=== PATIENT | female | born 1955 | race Caucasian/White ===

== ENCOUNTER 2021-07-05 22:22 | Inpatient (IN) | payer MEDICARE, SELFPAY ==
--- NOTE | 2021-07-05 22:25 | XRR_ITS ---
PROCEDURE INFORMATION: Exam: XR Chest Exam date and time: 07/05/2021 10:25 PM Age: 66 years old Clinical indication: Shortness of breath; Additional info: Covid TECHNIQUE: Imaging protocol: XR of the chest. Views: 1 view. COMPARISON: No relevant prior studies available. FINDINGS: Lungs: Hyperinflated lungs. No consolidation. Pleural spaces: Unremarkable. No pleural effusion. No pneumothorax. Heart/Mediastinum: Unremarkable. No cardiomegaly. Bones/joints: Unremarkable. XR/XR chest 1V portable [id number] IMPRESSION: No acute findings.
[2021-07-05 22:57] VITALS: BP 76/53; PULSE 62; RESP 16; TEMP 36.6; O2SAT 82
--- NOTE | 2021-07-05 23:07 | ECG_ITS ---
[facility] Test Date: 2021-07-05 Pat Name: Heather Acharya Department: Room: Gender: Female Operations General Agent: : 1955 Requested By: Dawson Armstrong Order Number: [id number] Reading MD: DELLA YU Measurements Intervals [place] Rate: 60 P: 35 RI: 206 QRS: 26 QRSD: 107 T: 34 QT: 426 QTc: 428 Interpretive Statements SINUS RHYTHM WITH SINUS ARRHYTHMIA No previous ECG available for comparison Electronically Signed On 07-06-2021 19:57:07 AGRICULTURAL SPECIALIST by DELLA YU [id number]
--- NOTE | 2021-07-05 23:34 | ED_ITS ---
HPI - COVID General: Chief Complaint: COVID symptoms Stated Complaint: covid symtoms Time Seen by Provider: 07/05/21 23:07 Source: patient and family Mode of arrival: ambulatory Limitations: no limitations Triage information: Has fever, cough or shortness of breath . Exposure to COVID + person last 14 days History of Present Illness: HPI Narrative: 66-year-old female states that she has not been feeling well over the last 6 to 7 days states been having diarrhea nausea vomiting body aches slight cough with dyspnea. She is down visiting her son and was having weakness along with some confusion today she been having near syncopal events when standing. Patient's pulse ox here on room air was 82 L and she was hypotensive after walking in her upon lying down in her bed her blood pressure is now 110/69 but still is requiring 3 to 4 L of oxygen to keep her at 93% on oxygen status. Patient's has had similar symptoms as well. COVID 19 common symptoms: positive fever(s), dyspnea, fatigue, body aches, nausea, vomiting and diarrhea; negative headache(s) or throat pain COVID 19 other sytmptoms: negative chest pain COVID Results: SARS-CoV-2 Antigen (Rapid) Negative (Negative) 07/06/21 00:00 07/06/21 SARS-CoV-2 (PCR) Pending 07/06/21 01:01 07/06/21 Coronavirus Type 229E (PCR) Pending 07/06/21 01:01 07/06/21 Review of Systems Const: Reports: fever(s), body aches, fatigue and malaise Eyes: Denies: blurry vision or eye discomfort ENMT: Denies: throat pain or dental pain Card: Denies: chest pain Resp: Reports: dyspnea GI: Reports: nausea, vomiting and diarrhea : Denies: dysuria Musc: Denies: neck pain or back pain Skin/Breast: Denies: rash Neuro: Denies: headache(s) Psych: Denies: depression Evan/Lymph: Denies: easy bruising All/Imm: Denies: urticaria Physical Exam Const: COMMON NORMALS: patient oriented x3 GENERAL APPEARANCE: ill appe aring HENMT: COMMON NORMALS: normocephalic and atraumatic HEAD & SCALP: normocephalic and atraumatic Eye: COMMON NORMALS: Equal, round and reactive pupils present and EOMs intact bilaterally PUPIL: Yes Equal, round and reactive pupils present Neck/C-Spine: COMMON NORMALS: full ROM and supple Chest: COMMONS NORMALS: normal inspection of the chest and normal palpation of entire chest wall Resp: COMMON NORMALS: normal respiratory effort, No retractions, No use of accessory muscles and clear to auscultation bilaterally AUSCULTATION: clear to auscultation bilaterally Cardio: COMMON NORMALS: regular rate, regular rhythm and No murmurs present (Cardio) RATE: regular rate RHYTHM: regular rhythm GI: COMMON NORMALS: Normal to inspection, nondistended, normoactive bowel sounds present, Soft to palpation, non-tender and no masses PALPATION: Yes Soft to palpation Extremity: COMMON NORMALS: normal to inspection and full ROM Neuro: COMMON NORMALS: patient oriented x3, moves all extremities and no focal motor deficits Psych: COMMON NORMALS: mental status grossly normal, Normal thought process present and cooperative THOUGHT PROCESS: Normal thought process present Skin: COMMON NORMALS: no rashes or lesions noted and no wounds GENERAL SKIN EXAM: no rashes or lesions noted Course Vital Signs: Vital signs: Vital Signs Temperature 97.9 F 07/05/21 22:57 Pulse Rate 61 07/06/21 00:57 Respiratory Rate 18 07/06/21 00:57 Blood Pressure 128/73 07/06/21 00:57 Pulse Oximetry 92 07/06/21 00:57 MDM - COVID MDM Narrative: Medical decision making narrative: Patient presents here with diarrhea and decreased appetite she does have acute kidney injury likely from her diarrhea creatinines elevated from baseline patient was hypotensive when she arrived she feels much improved here after IV fluids blood pressure is improving as well. Her rapid COVID was negative but her does have COVID we will check a PCR. I spoke to hospitalist will admit at this time for IV fluids and further treatment. Lab Data: Labs: Lab Results 07/05/21 07/05/21 07/05/21 23:32 23:32 23:32 WBC 7.7 10^3/uL 10^3/ uL (4.0-10.0) RBC 5.13 10^6/uL 10^6 /uL (4.1-5.3) Hgb 14.6 g/dL g/dL (11.5-15.3) Hct 42.4 % % (37.0-47.0) MCV 82.7 fl fl (81-99) MCH 28.5 pg pg (28.0-34.0) MCHC 34.4 g/dL g/dL (30.0-36.0) RDW 13.1 % % (12.1-15.1) Plt Count 150 10^3/cmm 10^3 /cmm (130-400) MPV 11.8 fL H fL (7.4-10.4) Neut % (Auto) 75.8 % % Lymph % (Auto) 16.8 % % Howell % (Auto) 6.8 % % Eos % (Auto) 0.0 % % Baso % (Auto) 0.1 % % Neut # (Auto) 5.83 10^3/uL 10^3 /uL (1.8-7.7) Lymph # (Auto) 1.3 10^3/uL 10^3/ uL (0.8-4.8) Howell # (Auto) 0.5 10^3/uL 10^3/ uL (0.2-0.9) Eos # (Auto) 0.0 10^3/uL 10^3/ uL (0.0-0.8) Baso # (Auto) 0.0 10^3/uL 10^3/ uL (0.0-0.1) Nucleated RBC % (a uto) 0 % % Nucleated RBCs # 0.0 /100WBC /100W BC PT 12.80 SECONDS SEC ONDS (12.1-14.9) INR 0.94 (0.8-1.2) D-Dimer 1.20 ug/mIFEU H u g/mIFEU (0-0.59) Sodium 133 mmol/L L mmol /L (136-145) Potassium 3.3 mmol/L L mmol /L (3.5-5.1) Chloride 92 mmol/L L mmol/ L (98-107) Carbon Dioxide 22 mmol/L mmol/L (22-29) Anion Gap 22.3 H (5-19) BUN 68 mg/dL H mg/dL (8-23) Creatinine 2.5 mg/dL H mg/dL (0.5-0.9) GFR Calculation 19.3 mL/min L mL/ min (90-130) Glucose 124 mg/dL H mg/dL (65-115) Calculated Osmolal ity 297 mOsm/kg H mOs m/kg (285-295) Lactic Acid Calcium 9.0 mg/dL mg/dL (8.5-10.5) Total Bilirubin 0.6 mg/dL mg/dL (0.15-1.2) AST 61 U/L H U/L (0-32) ALT 57 U/L H U/L (0-33) Alkaline Phosphata se 53 IU/L IU/L (35-105) C-Reactive Protein 45.8 mg/L H mg/L (0.0-4.9) Total Protein 7.1 g/dL g/dL (6.6-8.7) Albumin 3.6 g/dL g/dL (3.5-5.2) Globulin 3.5 g/dL g/dL (1.3-4.6) SARS-CoV-2 Ag (Rap id) 07/05/21 07/06/21 23:32 00:00 WBC RBC Hgb Hct MCV MCH MCHC RDW Plt Count MPV Neut % (Auto) Lymph % (Auto) Howell % (Auto) Eos % (Auto) Baso % (Auto) Neut # (Auto) Lymph # (Auto) Howell # (Auto) Eos # (Auto) Baso # (Auto) Nucleated RBC % (a uto) Nucleated RBCs # PT INR D-Dimer Sodium Potassium Chloride Carbon Dioxide Anion Gap BUN Creatinine GFR Calculation Glucose Calculated Osmolal ity Lactic Acid 1.2 mmol/L mmol/L (0.5-2.2) Calcium Total Bilirubin AST ALT Alkaline Phosphata se C-Reactive Protein Total Protein Albumin Globulin SARS-CoV-2 Ag (Rap id) Negative (Negative) Imaging Data: CXR: Attestation: I personally reviewed and interpreted this imaging study as follows: My impression: no acute abnormality EKG Data: EKG 1: Attestation: I personally reviewed and interpreted this EKG as follows: EKG interpretation date: 07/05/21 EKG interpretation time: 23:29 Interpretation: nsr hr [address] or t wave abnormalities qrs 107 qtc 427 COVID Results: SARS-CoV-2 Antigen (Rapid) Negative (Negative) 07/06/21 00:00 07/06/21 SARS-CoV-2 (PCR) Pending 07/06/21 01:01 07/06/21 Coronavirus Type 229E (PCR) Pending 07/06/21 01:01 07/06/21 Discharge Plan Discharge Patient Disposition: Admitted As Inpatient Clinical Impression: Close exposure to severe acute respiratory syndrome coronavirus 2 (SARS-CoV-2), Acute dehydration, Acute kidney injury, Diarrhea Condition: Stable Coding Level of Care Code 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
[2021-07-05 23:47] VITALS: O2SAT 93
[2021-07-05 23:50] LABS: Basophils % 0.1 %; Hematocrit 42.4 % (37.0-47.0); Hemoglobin 14.6 g/dL (11.5-15.3); Lymphocytes # 1.3 10^3/uL (0.8-4.8); Lymphocytes % 16.8 %; Mean Corpuscular HGB Conc 34.4 g/dL (30.0-36.0); Mean Corpuscular Hemoglobin 28.5 pg (28.0-34.0); Mean Corpuscular Volume 82.7 fl (81-99); Mean Platelet Volume 11.8 fL (7.4-10.4); Monocytes # 0.5 10^3/uL (0.2-0.9); Monocytes % 6.8 %; Neutrophils # 5.83 10^3/uL (1.8-7.7); Neutrophils % 75.8 %; Nucleated Red Blood Cells % 0 %; Platelet Count 150 10^3/cmm (130-400); Red Blood Count 5.13 10^6/uL (4.1-5.3); Red Cell Distribution Width 13.1 % (12.1-15.1); White Blood Count 7.7 10^3/uL (4.0-10.0)
[2021-07-06] VITALS (15 sets, daily range): BP systolic 93–149; BP diastolic 62–77; PULSE 61–84; RESP 16–29; TEMP 36.6; O2SAT 89–94; BMI 32.4
[2021-07-06 00:06] LABS: Alanine Aminotransferase 57 U/L (0-33); Albumin Level 3.6 g/dL (3.5-5.2); Alkaline Phosphatase 53 IU/L (35-105); Anion Gap 22.3 (5-19); Aspartate Amino Transferase 61 U/L (0-32); Blood Urea Nitrogen 68 mg/dL (8-23); C Reactive Protein 45.8 mg/L (0.0-4.9); Carbon Dioxide 22 mmol/L (22-29); Chloride 92 mmol/L (98-107); Globulin 3.5 g/dL (1.3-4.6); Glomerular Filtration Rate 19.3 mL/min (90-130); Glucose 124 mg/dL (65-115); Osmolality Calculated 297 mOsm/kg (285-295); Potassium 3.3 mmol/L (3.5-5.1); Sodium 133 mmol/L (136-145); Total Bilirubin 0.6 mg/dL (0.15-1.2); Total Protein 7.1 g/dL (6.6-8.7)
[2021-07-06 00:07] LABS: Lactic Sepsis W/Reflex 1.2 mmol/L (0.5-2.2)
[2021-07-06 00:09] LABS: INR 0.94 (0.8-1.2)
[2021-07-06] MEDS: sodium chloride 0.9% 1,000 ML 999 ML IV (00:11)
[2021-07-06 00:26] LABS: Slide Review Slide Review Perform
[2021-07-06 00:37] LABS: SARS Covid-2 Antigen Negative (Negative)
[2021-07-06 02:47] LABS: Adenovirus Not Detected (NOT DETECT); Chlamydia Pneumoniae Not Detected (NOT DETECT); Coronavirus 229E,HKU1,NL63,OC4 Not Detected (NOT DETECT); Human Metapneumovirus Not Detected (NOT DETECT); Human Rhinovirus/Enterovirus Not Detected (NOT DETECT); Influenza A Not Detected (NOT DETECT); Influenza A H1 Not Detected (NOT DETECT); Influenza A H1-2009 Not Detected (NOT DETECT); Influenza A H3 Not Detected (NOT DETECT); Influenza B Not Detected (NOT DETECT); Mycoplasma Pneumoniae Not Detected (NOT DETECT); Parainfluenza Virus Type 1 Not Detected (NOT DETECT); Parainfluenza Virus Type 2 Not Detected (NOT DETECT); Parainfluenza Virus Type 3 Not Detected (NOT DETECT); Parainfluenza Virus Type 4 Not Detected (NOT DETECT); Respiratory Syncytial Virus A Not Detected (NOT DETECT); Respiratory Syncytial Virus B Not Detected (NOT DETECT); SARS-COV-2 Detected (NOT DETECT)
--- NOTE | 2021-07-06 03:33 | P.HP_ITS ---
Providers/Chief Complaint Admitting Physician: Yumiko Rousseau Chief Complaint: covid symtoms History of Present Illness 66-year-old female with a past medical history significant for hypertension, dyslipidemia, gastroesophageal reflux disease, who presented to the hospital with generalized weakness. Patient noted onset of symptoms 1 week prior. This was associated with poor po intake, nausea, abdominal discomfort and ongoing loose watery diarrhea. Did have exposure to COVID-19. Denies chest pain or shortness of breath. Laboratory work upon arrival showed a WBC of 7.7, hemoglobin of 14.6, hematocrit of 42.4 and a platelet count of 150. INR 0.94. D-dimer 1.20. Sodium 133, potassium 3.3, chloride 92, bicarb 22, BUN 68 and creatinine of 2.5. Glucose of 124. Lactic acid of 1.2. AST of 61, ALT 57 and alkaline phosphatase 53. CRP of 45.8.COVID 19 ag was negative however PCR was positive. Chest x-ray did not show any evidence of acute abnormality. ER Course: Upon arrival patient was noted to have oxygen saturation in low to mid 80s. This improved with up to 4L of o2 via NC. Was given 1L bolus of IVF. Review of Systems General: Reports: 10 or more systems reviewed and unremarkable except in HPI and below Medications/Allergies Home Medications Medication Instructions Recorded Confirmed Last Taken Type clarithromycin 500 mg PO BID 07/06/21 07/06/21 07/05/21 20:00 History diltiazem HCl 240 mg PO DAILY 07/06/21 07/06/21 07/05/21 08:00 History escitalopram oxalate 10 mg PO DAILY 07/06/21 07/06/21 07/05/21 08:00 History fenofibrate nanocrystallized 145 mg PO DAILY 07/06/21 07/06/21 07/05/21 08:00 History hydrochlorothiazide 50 mg PO DAILY 07/06/21 07/06/21 07/05/21 08:00 History lisinopril 40 mg PO DAILY 07/06/21 07/06/21 07/05/21 08:00 History metoprolol succinate 100 mg PO DAILY 07/06/21 07/06/21 07/05/21 08:00 History montelukast 10 mg PO DAILY 07/06/21 07/06/21 07/05/21 08:00 History omeprazole 20 mg PO DAILY 07/06/21 07/06/21 07/05/21 08:00 History simvastatin 10 mg PO DAILY 07/06/21 07/06/21 07/05/21 08:00 History Allergies Allergy/AdvReac Type Severity Reaction Status Date / Time No Known Allergies Allergy Verified 07/05/21 23:01 PFSH Acute PFSH: Medical History (Updated 07/06/21 @ 05:37 by Yumiko Rousseau MD) Dyslipidemia Hypertension No pertinent family history Surgical History (Updated 07/06/21 @ 05:35 by Yumiko Rousseau MD) No pertinent past surgical history Social History (Updated 07/06/21 @ 05:35 by Yumiko Rousseau MD) Smoking and tobacco status: never smoked Alcohol intake: never Substance/Drug Use: never Vitals/I&O/Wt Last Vital Signs Temp 97.8 F 07/06/21 03:36 Pulse 65 07/06/21 04:22 Resp 19 H 07/06/21 03:36 BP 113/68 07/06/21 03:36 Pulse Ox 91 07/06/21 04:36 07/05/21 07/05/21 07/06/21 14:59 22:59 06:59 Intake Total 1120 / 1120 Balance 1120 / 1120 Weight last 48 hrs Weight 88.36 kg Weight 87.997 kg Physical Exam Narrative: EXAM NARRATIVE: General: alert, awake, NAD HEENT ; Grossly Unremarkable CVS; NSR Chest ; Non-labored respiration, on 4L via NC Abd : Soft NT,ND Ext; No edema Data : 07/05/21 23:32 07/05/21 23:32 Micro: Microbiology 07/05/21 23:25 Blood Culture - Preliminary Blood SPECIMEN COLLECTED 07/05/21 23:32 Blood Culture - Preliminary Blood SPECIMEN COLLECTED A&P Assessment and plan (1) Acute kidney injury: Status: Acute (2) COVID-19 virus infection: Status: Acute (3) Hypertension: Status: Acute (4) Dyslipidemia: Status: Acute (5) Hypoxia: Status: Acute Additional A&P Information Acute Renal Failure Likely Pre-renal Hypotensive on arrival ( 76/53) Cr - 2.5 NS 1L bolus n ER Continue at 75cc/hr Hold HCTZ/ACEinhibitor Repeat BMP in am Monitor urine output Acute Hypoxia Chest x-ray negative Repeat xray post hydration Concern for PE given COVID-19 D-dimer 1.20 Underlying sleep apnea Supplemental 02 as needed Wean as tolerated Neb as ordered If renal function return to baseline obtain CTA chest vs VQ scan COVID-19 infection Likely viral gastroenteritis Zofran PRN IVF - cautious Droplet precautions Will initiate Decadron 6mg daily x 10 days Monitor off abx Additional Medical Problems Hypertension Dyslipidemia GERD DVT ppx SCDS Heparin 5000 units q8hr Attestations Medical Necessity Statement*: Anticipate over 2 midnights stay in hospital for evaluation and treatment Time Spent in Patient Care: Greater than 35 minutes (>than 50% of time spent in counselling and/or direct pt care on unit) . 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
[2021-07-06] MEDS: heparin 5,000 unit/mL INJ 1 mL 5000 UNIT SUBCUT ×3 (03:52→19:34)
[2021-07-06] MEDS: sodium chloride 0.9% 1,000 ML 75 ML IV ×2 (03:52→16:37)
--- NOTE | 2021-07-06 05:26 | XRR_ITS ---
PROCEDURE INFORMATION: Exam: XR Chest Exam date and time: 07/06/2021 5:26 AM Age: 66 years old Clinical indication: Shortness of breath; Patient HX: Persistent hypoxia. Covid + TECHNIQUE: Imaging protocol: XR of the chest. Views: 1 view. Total images: 1 COMPARISON: CR (CHEST, ) 07/05/2021 10:44 PM FINDINGS: Lungs: Bilateral patchy airspace densities, favoring pneumonia, possibly atypical pneumonia. Calcified node in the left hilum/AP window. Pleural spaces: Unremarkable. No pleural effusion. No pneumothorax. Heart/Mediastinum: Heart size is stable when compared to the prior exam. Bones/joints: Osseous structures are unchanged from the prior exam. XR/XR chest 1V portable [id number] IMPRESSION: Bilateral patchy airspace densities, favoring pneumonia, possibly atypical pneumonia.
--- NOTE | 2021-07-06 05:58 | PC.NURSE ---
Admit Note Patient admitted to CSU room 106 from ED via stretcher. Patient able to ambulate to bed without difficulty. Denies increased SOB with exertion. Currently on 4L NC with SpO2 91%. Covering service notified. Patient presents with COVID symptoms with positive PCR, dehydration and brittany. Orders reviewed & will continue to monitor. Patient and/or leather goods sales representative oriented to environment, equipment, and informed of the following as found in the admission booklet: patient rights & responsibilities, visitor policy, hand and respiratory hygiene practice. Other education includes: heparin and IV fluids for hydration. Patient verbalized complete understanding.
[2021-07-06 06:17] LABS: Basophils % 0.2 %; Hematocrit 39.4 % (37.0-47.0); Hemoglobin 13.5 g/dL (11.5-15.3); Lymphocytes # 1.2 10^3/uL (0.8-4.8); Lymphocytes % 19.2 %; Mean Corpuscular HGB Conc 34.3 g/dL (30.0-36.0); Mean Corpuscular Hemoglobin 28.8 pg (28.0-34.0); Mean Corpuscular Volume 84.2 fl (81-99); Mean Platelet Volume 11.5 fL (7.4-10.4); Monocytes # 0.4 10^3/uL (0.2-0.9); Nucleated Red Blood Cells % 0 %; Platelet Count 150 10^3/cmm (130-400); Red Blood Count 4.68 10^6/uL (4.1-5.3); Red Cell Distribution Width 13.3 % (12.1-15.1); White Blood Count 6.2 10^3/uL (4.0-10.0)
[2021-07-06 06:39] LABS: Alanine Aminotransferase 48 U/L (0-33); Albumin Level 3.3 g/dL (3.5-5.2); Alkaline Phosphatase 48 IU/L (35-105); Aspartate Amino Transferase 52 U/L (0-32); Blood Urea Nitrogen 59 mg/dL (8-23); Calcium 8.6 mg/dL (8.5-10.5); Carbon Dioxide 22 mmol/L (22-29); Chloride 96 mmol/L (98-107); Globulin 3.2 g/dL (1.3-4.6); Glomerular Filtration Rate 28.2 mL/min (90-130); Glucose 116 mg/dL (65-115); Magnesium 1.9 mg/dL (1.7-2.3); Osmolality Calculated 298 mOsm/kg (285-295); Sodium 135 mmol/L (136-145); Total Bilirubin 0.5 mg/dL (0.15-1.2); Total Protein 6.5 g/dL (6.6-8.7)
[2021-07-06] MEDS: dexamethasone 10 mg/mL INJ 6 MG IVP (06:43)
[2021-07-06 06:44] LABS: Procalcitonin 0.17 ng/mL (0-0.5)
[2021-07-06 07:22] LABS: Slide Review Slide Review Perform
[2021-07-06] MEDS: pantoprazole DR 40 mg Tablet PO (08:12)
--- NOTE | 2021-07-06 14:50 | PM.PN ---
Subjective Subjective: Interval history: Patient feels slightly better. She denies dyspnea. She has fatigue, myalgias and decreased appetite. She has not had much PO intake over past several days. Vitals/I&O/Wt Last Vital Signs Temp 97.8 F 07/06/21 03:36 Pulse 65 07/06/21 08:00 Resp 16 07/06/21 10:06 BP 106/64 07/06/21 08:00 Pulse Ox 92 07/06/21 10:06 07/05/21 07/06/21 07/06/21 22:59 06:59 14:59 Intake Total 1120 / 1120 360 / 360 Balance 1120 / 1120 360 / 360 Weight last 48 hrs Weight 88.36 kg Weight 87.997 kg Physical Exam Narrative: EXAM NARRATIVE: elderly ill appearing, oriented Const: COMMON NORMALS: patient oriented x3 HENMT: COMMON NORMALS: normocephalic and atraumatic HEAD & SCALP: normocephalic and atraumatic Eye: COMMON NORMALS: Equal, round and reactive pupils present PUPIL: Yes Equal, round and reactive pupils present Neck/C-Spine: COMMON NORMALS: full ROM, supple and no JVD Chest: COMMONS NORMALS: normal inspection of the chest Resp: COMMON NORMALS: No use of accessory muscles and clear to auscultation bilaterally AUSCULTATION: clear to auscultation bilaterally Cardio: COMMON NORMALS: no JVD, regular rate, regular rhythm and No murmurs present (Cardio) RATE: regular rate RHYTHM: regular rhythm GI: COMMON NORMALS: Soft to palpation, non-tender and no masses PALPATION: Yes Soft to palpation : COMMON NORMALS: Yes no CVA tenderness BLADDER/KIDNEY EXAM: Yes no CVA tenderness Back/Pelvis: COMMON NORMALS: no CVA tenderness Extremity: COMMON NORMALS: full ROM, no clubbing, cyanosis or edema, no calf tenderness and no pedal edema Neuro: COMMON NORMALS: patient oriented x3, moves all extremities, no focal motor deficits and no sensory deficits noted Psych: COMMON NORMALS: mental status grossly normal ATTITUDE: Yes calm ACTIVITY/MOTOR BEHAVIOR: Yes appropriate eye contact Skin: COMMON NORMALS: no rashes or lesions noted, no wounds and turgor normal GENERAL SKIN EXAM: no rashes or lesions noted and turgor normal Data : 07/06/21 05:49 07/06/21 05:49 Micro: Microbiology 07/05/21 23:25 Blood Culture - Preliminary Blood SPECIMEN COLLECTED 07/05/21 23:32 Blood Culture - Preliminary Blood SPECIMEN COLLECTED A&P Assessment and plan (1) Acute hypoxemic respiratory failure due to COVID-19: Patient had PCR positive for COVID on arrival. Patient unvaccinated for COVID CXR reveals bilateral diffuse opacities consistent with COVID She is on supplemental oxygen at 4 L by NC Has had GI symptoms with COVID and noted to be acutely dehydrated and in CARA with hypotension. Although d dimer elevated 1.20, unable to obtain CTA chest to r/o PE due to renal failure Decadron 6 mg IV x 10 days, stop date 07/15/21 Unable to give remdesivir due to acute kidney injury Rocephin added for possible superimposed bacterial infection although unlikely Monitor closely At risk for further deterioration Status: Acute (2) Acute kidney injury: Serum creatinine 2.5 on arrival- improved to 1.8 with IVF Likely secondary to dehydration/poor PO intake- patient hypotensive on arrival- improved with fluids Continue to hold HCTZ/CAMERON Monitor I/O and renal function closely Status: Acute (3) Hypokalemia: Replace and monitor Status: Acute Attestations Medical Necessity Statement*: Patient requires continued hospitalization for acute medical problems including hypoxia and COVID infection, CARA, dehydration Coding Level of Care Code Acute 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
[2021-07-06] MEDS: cefTRIAXone 2,000 MG in sodium chloride 0.9% (plus) 50 ML 100 MG IV (15:25)
--- NOTE | 2021-07-06 18:04 | PC.NURSE ---
Shift Note Frequent safety and comfort rounds continue. Orders and/or nursing care completed as indicated. Patient monitored for response to intervention and treatment(s). Education provided includes instruction on cefipime. Patient and/or reimbursement representative verb understanding. Will continue to monitor.
--- NOTE | 2021-07-06 19:51 | PC.NURSE ---
Received report from FELICE Kramer. Patient resting in bed watching tv. Denies pain or needs. Assisted patient up to BSC. Noted patient to have increased SOB with exertion. SpO2 79%. SpO2 recovered when back in bed to 84%. Instructed patient on deep breathing exercises. Patient verbalized complete understanding.
[2021-07-07] VITALS (13 sets, daily range): BP systolic 124–162; BP diastolic 68–95; PULSE 64–90; RESP 15–28; TEMP 36.8; O2SAT 86–100
[2021-07-07] MEDS: ipratropium-albuterol 3 mL Neb INHALATION (03:09)
[2021-07-07 04:01] LABS: Hematocrit 40.4 % (37.0-47.0); Hemoglobin 13.6 g/dL (11.5-15.3); Lymphocytes # 0.8 10^3/uL (0.8-4.8); Lymphocytes % 24.4 %; Mean Corpuscular HGB Conc 33.7 g/dL (30.0-36.0); Mean Corpuscular Hemoglobin 28.2 pg (28.0-34.0); Mean Corpuscular Volume 83.6 fl (81-99); Mean Platelet Volume 11.6 fL (7.4-10.4); Monocytes # 0.3 10^3/uL (0.2-0.9); Monocytes % 8.2 %; Neutrophils # 2.16 10^3/uL (1.8-7.7); Neutrophils % 65.9 %; Nucleated Red Blood Cells % 0 %; Platelet Count 158 10^3/cmm (130-400); Red Blood Count 4.83 10^6/uL (4.1-5.3); Red Cell Distribution Width 12.8 % (12.1-15.1); White Blood Count 3.3 10^3/uL (4.0-10.0)
[2021-07-07 04:29] LABS: Procalcitonin 0.09 ng/mL (0-0.5)
[2021-07-07 04:42] LABS: Alanine Aminotransferase 44 U/L (0-33); Albumin Level 3.3 g/dL (3.5-5.2); Alkaline Phosphatase 52 IU/L (35-105); Aspartate Amino Transferase 35 U/L (0-32); Blood Urea Nitrogen 33 mg/dL (8-23); Calcium 8.9 mg/dL (8.5-10.5); Carbon Dioxide 21 mmol/L (22-29); Chloride 96 mmol/L (98-107); Globulin 3.6 g/dL (1.3-4.6); Glomerular Filtration Rate 55.5 mL/min (90-130); Glucose 166 mg/dL (65-115); Magnesium 1.8 mg/dL (1.7-2.3); Osmolality Calculated 289 mOsm/kg (285-295); Sodium 134 mmol/L (136-145); Total Bilirubin 0.4 mg/dL (0.15-1.2); Total Protein 6.9 g/dL (6.6-8.7)
[2021-07-07 04:46] LABS: Slide Review Slide Review Perform
[2021-07-07] MEDS: dexamethasone 10 mg/mL INJ 6 MG IVP (05:06)
[2021-07-07] MEDS: heparin 5,000 unit/mL INJ 1 mL 5000 UNIT SUBCUT ×3 (05:06→20:55)
[2021-07-07] MEDS: sodium chloride 0.9% 1,000 ML 75 ML IV (05:07)
--- NOTE | 2021-07-07 06:44 | PC.NURSE ---
Shift Note Frequent safety and comfort rounds continue. Orders and/or nursing care completed as indicated. Patient monitored for response to intervention and treatment(s). Education provided includes heparin and dexamethasone. Patient verbalized understanding. Patient's O2 requirement increased to 5L overnight with SpO2 sustaining 87%. Patient denies pain or needs. No distress observed. Will continue to monitor.
--- NOTE | 2021-07-07 07:45 | PM.PN ---
Subjective Subjective: Interval history: Patient reports appetite improved. She denies nausea, or abdominal pain. Has fatigue. Denies dyspnea- however, desaturates with movement. Currently requiring 5 L supplemental oxygen Medications: Reviewed: Yes Vitals/I&O/Wt Last Vital Signs Temp 97.9 F 07/06/21 16:00 Pulse 90 07/07/21 04:14 Resp 18 07/07/21 03:29 BP 136/68 07/07/21 03:29 Pulse Ox 86 L 07/07/21 03:29 07/06/21 07/07/21 07/07/21 22:59 06:59 14:59 Intake Total 1246.25 / 1846.25 1397.5 / 3243.75 Output Total 600 / 1300 Balance 646.25 / 546.25 1397.5 / 1943.75 Weight last 48 hrs Weight 88.36 kg Weight 87.997 kg Physical Exam Narrative: EXAM NARRATIVE: elderly patient, alert, oriented, not in acute distress Const: COMMON NORMALS: patient oriented x3 HENMT: COMMON NORMALS: normocephalic and atraumatic HEAD & SCALP: normocephalic and atraumatic Neck/C-Spine: COMMON NORMALS: full ROM and supple Resp: COMMON NORMALS: normal respiratory effort, No use of accessory muscles and clear to auscultation bilaterally AUSCULTATION: clear to auscultation bilaterally Cardio: COMMON NORMALS: regular rate, regular rhythm and No murmurs present (Cardio) RATE: regular rate RHYTHM: regular rhythm GI: COMMON NORMALS: Soft to palpation and non-tender PALPATION: Yes Soft to palpation Extremity: COMMON NORMALS: full ROM, no calf tenderness and no pedal edema Neuro: COMMON NORMALS: patient oriented x3, no focal motor deficits and no sensory deficits noted Psych: COMMON NORMALS: cooperative and speech normal ATTITUDE: Yes calm ACTIVITY/MOTOR BEHAVIOR: Yes appropriate eye contact SPEECH: Yes normal speech Skin: COMMON NORMALS: no rashes or lesions noted and no wounds GENERAL SKIN EXAM: no rashes or lesions noted Data : 07/07/21 03:31 07/07/21 03:31 Micro: Microbiology 07/05/21 23:25 Blood Culture - Preliminary Blood NEGATIVE TO DATE 07/05/21 23:32 Blood Culture - Preliminary Blood NEGATIVE TO DATE A&P Assessment and plan (1) Acute hypoxemic respiratory failure due to COVID-19: Patient had PCR positive for COVID on arrival. Patient unvaccinated for COVID CXR reveals bilateral diffuse opacities consistent with COVID She is now requiring 5 L supplemental oxygen by nasal canula. Continue supplemental oxygen and titrate as able to Has had GI symptoms with COVID and noted to be acutely dehydrated and in CARA with hypotension. Although d dimer elevated 1.20, CTA was unable to be obtained at admission due to CARA As renal function has now improved to baseline- will order CTA Decadron 6 mg IV x 10 days, stop date 07/15/21 Unable to give remdesivir due to acute kidney injury at time of admission- as renal function now normal- will begin remdesivir x 5 days- stop date 07/11/21- patient now declines remdesivir Rocephin added for possible superimposed bacterial infection- will D/C Monitor closely At risk for further deterioration Status: Acute (2) Acute kidney injury: Serum creatinine 2.5 on arrival- improved to 1.8 with IVF and currently is in normal range- will D/C IVF Monitor I/O and renal function closely Status: Acute (3) Hypokalemia: Replace and monitor Status: Acute Attestations Medical Necessity Statement*: Patient requires ongoing care and hospitalization for acute respiratory failure with hypoxia due to COVID Coding Level of Care Code Acute 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
[2021-07-07] MEDS: remdesivir 200 MG in sodium chloride 0.9% (100 ml) 60 ML 100 MG IV (08:14)
[2021-07-07] MEDS: potassium chloride ER 20 mEq Tablet 40 MEQ PO (08:15)
[2021-07-07] MEDS: pantoprazole DR 40 mg Tablet PO (08:15)
[2021-07-07] MEDS: potassium chloride premix 100 ML 50 MEQ IV (09:03)
--- NOTE | 2021-07-07 10:37 | CTR_ITS ---
PROCEDURE INFORMATION: Exam: CTA Chest With Contrast Exam date and time: 07/07/2021 10:37 AM Age: 66 years old Clinical indication: Dyspnea and hypoxia. TECHNIQUE: Imaging protocol: Computed tomographic angiography of the chest with contrast. 3D rendering (Not supervised by radiologist): MIP and/or 3D reconstructed images were created by the technologist. Radiation optimization: All CT scans at this facility use at least one of these dose optimization techniques: automated exposure control; mA and/or kV adjustment per patient size (includes targeted exams where dose is matched to clinical indication); or iterative reconstruction. Contrast material: VISI 320; Contrast volume: 52 ml; Contrast route: INTRAVENOUS (IV); COMPARISON: CR (CHEST, ) 07/06/2021 5:49 AM RADIATION DOSE METRICS: Total DLP (mGy-cm): 621.43 FINDINGS: Pulmonary arteries: Motion artifact compromises assessment for pulmonary embolus. No main, central or lobar pulmonary embolus. Aorta: No thoracic aortic aneurysm. No thoracic aortic dissection. Lungs: There are extensive ground-glass opacities bilaterally with a peripheral predominance.These imaging findings are commonly reported imaging features of COVID 19 pneumonia. Other processes such as Influenza pneumonia and organizing pneumonia (as can be seen with connective tissue disease and drug toxicity) can cause a similar imaging pattern. Calcified granuloma in the left lower lobe. No pulmonary mass. Pleural spaces: No pleural effusion. No pneumothorax. Heart: Coronary arterial calcifications are noted. No pericardial effusion. Lymph nodes: A right hilar lymph node measures 1.3 x 1.5 cm. A left hilar lymph node measures 1.0 x 1.2 cm. A subcarinal lymph node measures 1.1 x 2.2 cm. Diaphragm: Small hiatal hernia. Spleen: The spleen is enlarged measuring 13.5 cm. There is diffuse hepatic steatosis. Cholelithiasis with largely contracted gallbladder. The common bile duct appears dilated measuring up to 1.1 cm. A periportal lymph node measures 1.9 x 2.4 cm. Bones/joints: No acute fracture is identified. Soft tissues: There are nodules in the right breast measuring 1.0 x 1.6 cm, 0.7 x 0.9 cm and 0.[address]/CT angio chest PE protcl [id number] IMPRESSION: 1. Motion artifact compromises assessment for pulmonary embolus. No main, central or lobar pulmonary embolus. 2. There are extensive ground-glass opacities bilaterally with a peripheral predominance.These imaging findings are commonly reported imaging features of COVID 19 pneumonia. Other processes such as Influenza pneumonia and organizing pneumonia (as can be seen with connective tissue disease and drug toxicity) can cause a similar imaging pattern. 3. Mediastinal and bilateral hilar lymphadenopathy. 4. Cholelithiasis with largely contracted gallbladder. The common bile duct appears dilated measuring up to 1.1 cm. Recommend right upper quadrant ultrasound to further assess. 5. Multiple nodules in the right breast. Recommend diagnostic right breast mammogram with concurrent ultrasound to further assess. 6. Diffuse hepatic steatosis with periportal lymphadenopathy. 7. Coronary artery disease. 8. Splenomegaly.
[2021-07-07] MEDS: iodixanol 320 mg/mL 100mL Btl IV (14:04)
[2021-07-08] VITALS (38 sets, daily range): BP systolic 147–174; BP diastolic 80–99; PULSE 55–89; RESP 12–34; TEMP 36.4–36.9; O2SAT 87–98
[2021-07-08 03:40] LABS: Hematocrit 39.9 % (37.0-47.0); Hemoglobin 13.7 g/dL (11.5-15.3); Lymphocytes # 0.7 10^3/uL (0.8-4.8); Lymphocytes % 10.5 %; Mean Corpuscular HGB Conc 34.3 g/dL (30.0-36.0); Mean Corpuscular Hemoglobin 28.8 pg (28.0-34.0); Mean Platelet Volume 11.5 fL (7.4-10.4); Monocytes # 0.6 10^3/uL (0.2-0.9); Monocytes % 8.8 %; Neutrophils # 4.85 10^3/uL (1.8-7.7); Neutrophils % 77.2 %; Nucleated Red Blood Cells % 0 %; Platelet Count 197 10^3/cmm (130-400); Red Blood Count 4.75 10^6/uL (4.1-5.3); Red Cell Distribution Width 12.8 % (12.1-15.1); White Blood Count 6.3 10^3/uL (4.0-10.0)
[2021-07-08 03:59] LABS: Anion Gap 16.1 (5-19); Blood Urea Nitrogen 28 mg/dL (8-23); Calcium 9.3 mg/dL (8.5-10.5); Carbon Dioxide 24 mmol/L (22-29); Chloride 103 mmol/L (98-107); Glomerular Filtration Rate 62.6 mL/min (90-130); Glucose 143 mg/dL (65-115); Osmolality Calculated 296 mOsm/kg (285-295); Potassium 4.1 mmol/L (3.5-5.1); Sodium 139 mmol/L (136-145)
[2021-07-08 04:12] LABS: Slide Review Slide Review Perform
[2021-07-08] MEDS: heparin 5,000 unit/mL INJ 1 mL 5000 UNIT SUBCUT ×3 (05:28→20:13)
[2021-07-08] MEDS: dexamethasone 10 mg/mL INJ 6 MG IVP (05:34)
[2021-07-08] MEDS: pantoprazole DR 40 mg Tablet PO (08:32)
--- NOTE | 2021-07-08 10:14 | US_ITS ---
WS: [id number] RIGHT UPPER QUADRANT ULTRASOUND HISTORY: hepatobiliary - cholelithiasis, assess CBD dilation COMPARISON: None available. Liver: 16.5 cm in length. Liver is top normal size. Coarse echogenicity throughout the liver from hep atic steatosis. Portal Vein: Normal hepatopetal flow with monophasic waveform. Gallbladder: Normal size gallbladder with cholelithiasis. Gallbladder is slightly contracted. No meri cholecystic fluid. No wall thickening. CBD: 0.6 cm Pancreas: Normal size and echogenicity. Right kidney: 10.8 cm in length. Normal size and echogenicity. No hydronephrosis or mass. Aorta and IVC: Unremarkable abdominal aorta and IVC. No ascites. US/US abdomen limited [id number] IMPRESSION: 1. Cholelithiasis without evidence for acute cholecystitis. 2. No bile duct dilatation. 3. Mild hepatic steatosis.
--- NOTE | 2021-07-08 11:50 | P.PN_ITS ---
Subjective Subjective: Interval history: She is not entirely sure why her oxygen was increased overnight to 12 L flow. She states currently she is doing all right. She has been self proning. Vitals/I&O/Wt Last Vital Signs Temp 97.5 F L 07/08/21 11:17 Pulse 83 07/08/21 11:17 Resp 23 H 07/08/21 11:17 BP 147/86 07/08/21 11:17 Pulse Ox 91 07/08/21 11:17 07/07/21 07/08/21 07/08/21 22:59 06:59 14:59 Intake Total 240 / 980 236 / 236 Output Total 0 / 500 0 / 500 450 / 450 Balance 240 / 480 0 / 480 -214 / -214 Physical Exam Const: COMMON NORMALS: no acute distress and patient oriented x3 HENMT: COMMON NORMALS: oropharynx normal Neck/C-Spine: COMMON NORMALS: no JVD Resp: COMMON NORMALS: normal respiratory effort and clear to auscultation bilaterally AUSCULTATION: clear to auscultation bilaterally Cardio: COMMON NORMALS: no JVD, regular rhythm, S1 normal heart sound present, S2 normal heart sound present and No murmurs present (Cardio) RHYTHM: regular rhythm HEART SOUNDS: S1 normal heart sound present and S2 normal heart sound present GI: COMMON NORMALS: Normal to inspection, nondistended, normoactive bowel sounds present, Soft to palpation and non-tender PALPATION: Yes Soft to palpation Extremity: COMMON NORMALS: no joint enlargement and no pedal edema Neuro: COMMON NORMALS: patient oriented x3 and moves all extremities Skin: COMMON NORMALS: no rashes or lesions noted GENERAL SKIN EXAM: no rashes or lesions noted Data : 07/08/21 03:05 07/08/21 03:05 A&P Assessment and plan (1) Acute hypoxemic respiratory failure due to COVID-19: This morning she was up to 12 L on the nasal cannula. But at rest she has been doing quite well she states. Respiratory failure unable to titrate her down to 6 L nasal cannula currently. She overall states he is doing all right. She is self proning. Discussed with her in case of progressive worsening of condition risk and benefits of consideration of possible baricitinib. For now continue Decadron. Continue oxygen support. Wean down oxygen as tolerated. Self proning as tolerating. Prophylactic heparin. Add antitussives as needed. Status: Acute (2) Acute kidney injury: Resolved. Serum creatinine 2.5 on arrival Status: Acute (3) Hypokalemia: Replaced Status: Acute (4) Common bile duct dilation: Denies any abdominal pain, no nausea or vomiting. No abdominal tenderness. Discussed with her cholelithiasis and CBD dilation. We will further assess with ultrasound. Status: Acute (5) Breast nodule: Will need outpatient follow-up with recommended right breast mammogram with concurrent ultrasound. Status: Acute Additional A&P Information Incidentally noted diffuse hepatic steatosis with periportal lymphadenopathy. Will need outpatient follow-up. Incidentally noted on CT appearance of CAD, discussed with her son Incidentally noted splenomegaly, discussed with her son, will need outpatient follow-up COVID-19 infection: severe. As above. Additional Medical Problems Hypertension Dyslipidemia GERD DVT ppx SCDS Heparin 5000 units q8hr Attestations Medical Necessity Statement*: Continue assessment and management of severe covid 19. Coding Level of Care Code Acute [employer] for herber Daley Diagnoses Acute hypoxemic respiratory failure due to COVID-19 U07.1; J96.01 Acute kidney injury N17.9 Hypokalemia E87.6 Common bile duct dilation K83.8 Breast nodule N63.0
[2021-07-08] MEDS: metoprolol succinate ER (24 HR) 50 mg Tablet PO (16:50)
[2021-07-09] VITALS (8 sets, daily range): BP systolic 148–177; BP diastolic 87–101; PULSE 59–88; RESP 16–18; TEMP 36.6–36.9; O2SAT 86–92
[2021-07-09 03:29] LABS: Basophils % 0.1 %; Eosinophils % 0.3 %; Hematocrit 41.7 % (37.0-47.0); Hemoglobin 14.2 g/dL (11.5-15.3); Lymphocytes # 0.8 10^3/uL (0.8-4.8); Lymphocytes % 11.7 %; Mean Corpuscular HGB Conc 34.1 g/dL (30.0-36.0); Mean Corpuscular Hemoglobin 28.3 pg (28.0-34.0); Mean Corpuscular Volume 83.2 fl (81-99); Mean Platelet Volume 11.1 fL (7.4-10.4); Monocytes # 0.6 10^3/uL (0.2-0.9); Monocytes % 9.3 %; Neutrophils % 76.2 %; Nucleated Red Blood Cells % 0 %; Platelet Count 233 10^3/cmm (130-400); Red Blood Count 5.01 10^6/uL (4.1-5.3); Red Cell Distribution Width 12.7 % (12.1-15.1); White Blood Count 6.7 10^3/uL (4.0-10.0)
[2021-07-09 03:46] LABS: D Dimer 0.84 ug/mIFEU (0-0.59)
[2021-07-09] MEDS: heparin 5,000 unit/mL INJ 1 mL 5000 UNIT SUBCUT (03:50)
[2021-07-09 03:54] LABS: Alanine Aminotransferase 41 U/L (0-33); Albumin Level 3.1 g/dL (3.5-5.2); Alkaline Phosphatase 53 IU/L (35-105); Aspartate Amino Transferase 37 U/L (0-32); Blood Urea Nitrogen 28 mg/dL (8-23); C Reactive Protein 5.2 mg/L (0.0-4.9); Calcium 9.5 mg/dL (8.5-10.5); Carbon Dioxide 22 mmol/L (22-29); Chloride 105 mmol/L (98-107); Globulin 3.4 g/dL (1.3-4.6); Glomerular Filtration Rate 55.5 mL/min (90-130); Glucose 108 mg/dL (65-115); Osmolality Calculated 294 mOsm/kg (285-295); Sodium 139 mmol/L (136-145); Total Bilirubin 0.4 mg/dL (0.15-1.2); Total Protein 6.5 g/dL (6.6-8.7)
[2021-07-09] MEDS: dexamethasone 10 mg/mL INJ 6 MG IVP (05:37)
--- NOTE | 2021-07-09 06:02 | PC.NURSE ---
Frequent safety and comfort rounds continue. Orders and/or nursing care completed as indicated. Patient monitored for response to intervention and treatment(s). Education provided includes Dexamethasone and heparin sq.. 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 Patient states that she feels much better as she is now been able to eat. Will continue to monitor.
[2021-07-09] MEDS: escitalopram 10 mg Tablet PO (08:12)
[2021-07-09] MEDS: metoprolol succinate ER (24 HR) 50 mg Tablet PO (08:12)
[2021-07-09] MEDS: atorvastatin 40 mg Tablet 20 MG PO (08:12)
[2021-07-09] MEDS: montelukast sodium 10 mg Tablet PO (08:12)
[2021-07-09] MEDS: pantoprazole DR 40 mg Tablet PO (08:12)
--- NOTE | 2021-07-09 10:05 | PC.SOCIAL ---
IMM Update: pg 2 of IMM updated and reviewed w/ patient. Copy placed in chart.
--- NOTE | 2021-07-09 11:26 | P.DS_ITS ---
Discharge Providers Date of Admission: 07/06/21 01:31 Date of Discharge: July 09, 2021 Attending Provider at Admission: Yumiko Rousseau Attending Provider at Discharge: Davie Weston Diagnoses at Discharge Discharge Diagnosis (1) Acute hypoxemic respiratory failure due to COVID-19: Status: Acute (2) Acute kidney injury: Status: Acute (3) Hypokalemia: Status: Acute Permanent problem details: DVT prophylaxis- SQ heparin Code status- Full (4) Common bile duct dilation: Status: Acute (5) Breast nodule: Status: Acute Reason for Visit Reason for Visit: [facility] Course Hospital Course Pleasant 66-year-old lady with history of HTN, HLD, GERD was admitted after presenting with generalized weakness, with symptom onset about a week prior, with poor p.o. intake, nausea, abdominal discomfort, diarrhea, on presentation initially noted hypotensive, continue taking antihypertensives at home, which were held, with also noted concomitant acute kidney injury, creatinine 2.5. HCTZ, lisinopril held for now. CT angiogram on presentation without PE in the setting of mild D-dimer abnormality, 1.2. CT angiogram showing groundglass opacities, but also a number of incidental findings including mediastinal and bilateral hilar lymphadenopathy, also cholelithiasis with largely contracted gallbladder, common bile duct appearing dilated 1.1 cm, followed up with ultrasound showing cholelithiasis with normal CBD, without signs of cholecystitis. Noted diffuse hepatic steatosis with periportal lymphadenopathy. Also noted splenomegaly. Incidentally also noted multiple nodules in the right breast with recommended follow-up right breast mammogram and ultrasound for additional assessment. Incidentally noted appearance of coronary artery disease. She required supplemental oxygenation, received treatment with Decadron. Declined remdesivir. Received supportive care with antitussives, VTE prophylaxis. Blood pressures improved. Diarrhea resolved. Acute kidney injury resolved. She has been tolerating oral intake well. Was resumed on metoprolol, and as subsequently also resumed on diltiazem, but as for now to hold lisinopril, HCTZ unless blood pressures continue to rise and is asked to follow-up for reassessment of renal function given recent acute kidney injury. Once recovers from acute issues will need follow-up for right breast nodules, hepatic steatosis, splenomegaly, mediastinal, hilar and periportal lymphadenopathy, cholelithiasis, and assessment and management of risk factors of CAD. Physical Exam Const: COMMON NORMALS: no acute distress, patient oriented x3 and alert GENERAL APPEARANCE: cooperative ORIENTATION/CONSCIOUSNESS: Yes awake OTHER: Much more energetic, in good spirits. Reports she is feeling very well. Has been ambulating in her room and to the restroom, tolerating well. HENMT: COMMON NORMALS: oropharynx normal Neck/C-Spine: COMMON NORMALS: no JVD Resp: COMMON NORMALS: normal respiratory effort and clear to auscultation bilaterally AUSCULTATION: clear to auscultation bilaterally Cardio: COMMON NORMALS: no JVD, regular rhythm, S1 normal heart sound present, S2 normal heart sound present and No murmurs present (Cardio) RHYTHM: regular rhythm HEART SOUNDS: S1 normal heart sound present and S2 normal heart sound present GI: COMMON NORMALS: Normal to inspection, nondistended, normoactive bowel sounds present, Soft to palpation and non-tender PALPATION: Yes Soft to palpation Extremity: COMMON NORMALS: no joint enlargement and no pedal edema Neuro: COMMON NORMALS: patient oriented x3 and moves all extremities SENSORIUM/ORIENTATION: Yes alert Skin: COMMON NORMALS: no rashes or lesions noted GENERAL SKIN EXAM: no rashes or lesions noted Discharge Data Data Completed and Pending: Completed Studies During Hospitalization Category Date Time Status CTA chest [CT ang io chest PE protcl [id number]] Urgent Cat Scan 07/07/21 10:37 Completed XR chest 1V orlin ble [id number] Routine Exams 07/06/21 05:26 Completed XR chest 1V orlin ble [id number] Stat Exams 07/05/21 22:25 Completed US abdomen limite d [id number] Routine Ultrasound 07/08/21 10:14 Completed Pending at discharge Category Date Time Status Blood Culture Sta t Lab 07/05/21 23:25 Results Complete Blood Co unt w/Auto AM LABS Lab 07/10/21 04:00 Ordered Complete Blood Co unt w/Auto AM LABS Lab 07/11/21 04:00 Ordered Comprehensive Met abolic Panel AM LA BS Lab 07/10/21 04:00 Ordered Comprehensive Met abolic Panel AM LA BS Lab 07/11/21 04:00 Ordered Labs from last 24 hours 07/09/21 07/09/21 07/09/21 02:45 02:45 02:45 WBC 6.7 RBC 5.01 Hgb 14.2 Hct 41.7 MCV 83.2 MCH 28.3 MCHC 34.1 RDW 12.7 Plt Count 233 MPV 11.1 H Neut % (Auto) 76.2 Lymph % (Auto) 11.7 [place] % (Auto) 9.3 Eos % (Auto) 0.3 Baso % (Auto) 0.1 Neut # (Auto) 5.10 Lymph # (Auto) 0.8 [place] # (Auto) 0.6 Eos # (Auto) 0.0 Baso # (Auto) 0.0 Nucleated RBC % (a uto) 0 Nucleated RBCs # 0.0 D-Dimer 0.84 H Sodium 139 Potassium 4.0 Chloride 105 Carbon Dioxide 22 Anion Gap 16.0 BUN 28 H Creatinine 1.0 H GFR Calculation 55.5 L Glucose 108 Calculated Osmolal ity 294 Calcium 9.5 Total Bilirubin 0.4 AST 37 H ALT 41 H Alkaline Phosphata se 53 C-Reactive Protein 5.2 H Total Protein 6.5 L Albumin 3.1 L Globulin 3.4 Vitals: Last Vital Signs Temp 98.5 F 07/09/21 08:00 Pulse 74 07/09/21 08:00 Resp 16 07/09/21 04:00 BP 160/98 07/09/21 08:00 Pulse Ox 90 07/09/21 08:00 Discharge Plan Discharge Patient Disposition: Home Condition: Stable Prescriptions: New enoxaparin [Lovenox] 40 mg/0.4 mL syringe 40 mg SUBCUT Q24H 2 Days Qty: 0.8 RF: 0 dexamethasone [Decadron] 6 mg tablet 6 mg PO DAILY Qty: 1 RF: 0 dextromethorphan-guaifenesin 10-100 mg/5 mL Syrup 10 ml PO Q4H PRN (Reason: Cough) 7 Days Qty: 237 RF: 0 Continued diltiazem HCl 240 mg capsule,ext.rel 24h degradable 240 mg PO DAILY RF: 0 clarithromycin 500 mg tablet 500 mg PO BID RF: 0 metoprolol succinate 100 mg tablet extended release 24 hr 100 mg PO DAILY RF: 0 simvastatin 10 mg tablet 10 mg PO DAILY RF: 0 omeprazole 20 mg capsule,delayed release(DR/EC) 20 mg PO DAILY RF: 0 montelukast 10 mg tablet 10 mg PO DAILY RF: 0 escitalopram oxalate 10 mg tablet 10 mg PO DAILY RF: 0 fenofibrate nanocrystallized 145 mg tablet 145 mg PO DAILY RF: 0 Held hydrochlorothiazide 50 mg tablet 50 mg PO DAILY RF: 0 Hold Instructions: Resume on 07/15/21. lisinopril 40 mg tablet 40 mg PO DAILY RF: 0 Hold Instructions: Resume on 07/15/21. Discharge Orders: Discharge Order (Routine); Ordered 07/09/21 Ordered By: Davie Weston Referrals: Primary, provider [Other] - 2 weeks Discharge Diet: Cardiac and Low Fat Discharge Activity: Increase activity as tolerated, Limit activity as instructed and Oxygen as instructed Patient Instructions: Gallstones (GEN), Acute Kidney Injury (GEN), Using Oxygen at Home (GEN), Non-Alcoholic Fatty Liver Disease (GEN), Hypoxia (GEN), COVID-19 (Coronavirus Disease 2019) (GEN) Activity Restrictions/Additional Instructions: Continue oxygen at home as discussed, continue to monitor oxygen saturation several times a day or if you are feeling unwell. Target oxygen saturation of 90% or above. If decreasing below 88% due to exertion, increased oxygen flow by 1-2 L, temporarily, until oxygen saturation starts to improve with rest. Avoid overexertion, but light activity is good. If you start experiencing worse shortness of breath, extreme fatigue, chest pain or pressure, or other concerning symptoms, seek medical attention without delay. Maintain isolation until 07/18 to reduce chance of spread of infection. Please seek COVID vaccination to help prevent recurrent severe COVID-19 illness. Due to anticipated car travel you are also provided with prophylactic dose of Lovenox to help reduce chance of blood clots on the way home which do not need to be continued once you are back home and resuming light activity. Discussed with your primary doctor also regarding incidentally seen right breast nodules on CT which will need evaluation with mammography and ultrasound. Please have your primary doctor refer you for these once you recover from your respiratory illness. Please follow-up with your primary doctor regarding incidental findings of fatty liver disease. Discussed with your primary care doctor follow-up, as well as ways to help decrease progression of hepatic steatosis which may put you at risk of liver cirrhosis and other complications. Maintain low-fat diet. Avoid any alcohol. Discussed with your primary doctor regarding help with weight loss. Please also have your primary doctor follow-up regarding incidental finding of enlarged spleen. Discussed with the doctor to make sure that all your vaccinations are up-to-date. Please follow-up with your primary doctor regarding gallstones. Discussed with your primary doctor also incidentally seen appearance suggesting coronary disease on CT scan and your heart vessels. Discuss ways to optimize cardiovascular risk factors. Please discuss with your primary doctor incidentally seen enlarged lymph nodes in your chest and lungs. On presentation he also had acute kidney injury. Please have a primary doctor follow-up kidney function. Your blood pressure was quite low, please measure blood pressure at least 2-3 times daily, and if your blood pressure is lower than 100 top number or 60 bottom number, please do not take your blood pressure medication HCTZ, lisinopril, diltiazem, metoprolol). Please note for now lisinopril and HCTZ are held due to the recent acute kidney injury. If your blood pressure continues to climb higher, you may resume these medications 1 at a time, but please make sure your primary doctor follows up your renal function to reassess for any worsening of kidney injury. Discharge Attestations Time Spent in Discharge Care*: greater than 30 min Quality Metrics Clinical Quality Measures During this hospital stay, did patient experience: None Coding Level of Care Code Acute Chg FW DC note Diagnoses Acute hypoxemic respiratory failure due to COVID-19 U07.1; J96.01 Acute kidney injury N17.9 Hypokalemia E87.6 Common bile duct dilation K83.8 Breast nodule N63.0
[2021-07-09] MEDS: dilTIAZem ER (24HR) 240 mg Capsule PO (13:31)
[2021-07-09] MEDS: enoxaparin 40 mg/0.4 mL Syringe SUBCUT (14:48)
--- NOTE | 2021-07-09 15:35 | PC.NURSE ---
pt wants to send her new Rx to [facility] script and print the Rx
--- NOTE | 2021-07-09 16:58 | PC.NURSE ---
Discharge Note Patient discharged to home via wheelchair accompanied by family. Discharge instructions reviewed with patient and/or sales representative uniforms. Mobile pharmacy medications and/or prescriptions provided. Belongings/home medications returned.
== END 2021-07-09 16:57 | disposition home or self-care (01) | DRG 177 ==
LOC: ER 07-06 02:16 → CSU 07-06 02:17
PROVIDERS: Internal Medicine; Nurse Practitioner Family; Admitting Provider Hospitalist; Emergency Provider Emergency Medicine; Visit Provider Internal Medicine
DX: U07.1 COVID-19 (principal); J96.01 Acute respiratory failure with hypoxia; N17.9 Acute kidney failure, unspecified; E87.6 Hypokalemia; I95.9 Hypotension, unspecified; N63.10 Unspecified lump in the right breast, unspecified quadrant; K83.8 Other specified diseases of biliary tract; R79.1 Abnormal coagulation profile; R59.0 Localized enlarged lymph nodes; K76.0 Fatty (change of) liver, not elsewhere classified; K80.20 Calculus of gallbladder without cholecystitis without obstruction; R16.1 Splenomegaly, not elsewhere classified; E86.0 Dehydration; I10 Essential (primary) hypertension; E78.5 Hyperlipidemia, unspecified; K21.9 Gastro-esophageal reflux disease without esophagitis
CPT/HCPCS: 12345; 36415; 71045; 71275; 76705; 80048; 80053; 83605; 83735; 84145; 85025; 85378; 85610; 86140; 87040; 87426; 87635; 93005; 94640; 94664; 96372; 99285; J0696; J1100; J1644; J1650; J3480; J7030; Q9967

== ENCOUNTER → 2024-03-21 13:59 | Outpatient (BNVA) | payer MEDICARE, SELFPAY | PROVIDERS: PCP Family Medicine; Visit Provider Family Medicine | DX: I10 Essential (primary) hypertension (principal); E78.5 Hyperlipidemia, unspecified | CPT/HCPCS: 80053; 80061; 84443 ==

== ENCOUNTER 2024-04-07 13:51 | Outpatient (CLI) | payer MEDICARE, SELFPAY ==
--- NOTE | 2024-04-07 14:00 | MM_ITS ---
WS: [id number] BILATERAL SCREENING DIGITAL TOMOSYNTHESIS MAMMOGRAM WITH CAD HISTORY: breast cancer screening COMPARISON: 08/22/2022, 09/13/2021, 12/05/2020 and 07/13/2019, breast ultrasound 09/10/2022 Bilateral CC and MLO views with tomosynthesis and synthetic mammography submitted. Computer aided det ection analyzed. Breast composition: There are scattered areas of fibroglandular density. No suspicious masses, microc alcifications or architectural distortion. Reidentified are several round and ovoid masses with well- circumscribed margins within the RIGHT breast. The largest is subareolar and central to the nipple me asuring 1.3 x 2.1 x 1.3 cm. Additional scattered masses are also stable. LEFT breast is negative. No suspicious grouping of calcifications. MM/MM scr BI tomosynthesis [id number] IMPRESSION: BI-RADS: 2 - Benign. FOLLOW UP: 1 Year Follow-up
--- NOTE | 2024-04-07 14:30 | XR_ITS ---
WS: [id number] DEXA (DUAL ENERGY X-RAY ABSORPTIOMETRY) Bone mineral density was performed using a [employer] machine. HISTORY: osteoporosis screening COMPARISON: None available. Lumbar spine BMD (L1-L4): 1.239 g/cm2 T score: 0.5 Z score: 1.4 Total hip BMD: Left: 1.088 g/cm2. T score: 0.6 Z score: 1.5 Right: 1.073 g/cm2. T score: 0.5 Z score: 1.4 10 year probability of a major osteoporotic fracture is 6.3%. XR/XR DEXA axial skeleton* [id number] IMPRESSION: NORMAL BONE MINERAL DENSITY based upon the WHO classification for females.
== END 2024-04-07 13:52 | disposition home or self-care (01) ==
LOC: RAD 13:53
PROVIDERS: PCP Family Medicine; Visit Provider Family Medicine
DX: Z12.31 Encounter for screening mammogram for malignant neoplasm of breast (principal); Z78.0 Asymptomatic menopausal state; Z13.820 Encounter for screening for osteoporosis; R92.323 Mammographic fibroglandular density, bilateral breasts; N63.41 Unspecified lump in right breast, subareolar
CPT/HCPCS: 77063; 77067; 77080

== ENCOUNTER → 2024-07-30 11:43 | Outpatient (BNVA) | payer MEDICARE, SELFPAY | PROVIDERS: PCP Family Medicine | DX: R39.9 Unspecified symptoms and signs involving the genitourinary system (principal) | CPT/HCPCS: 81000 ==

== ENCOUNTER → 2025-03-21 09:00 | Outpatient (BNVA) | payer MEDICARE, SELFPAY | PROVIDERS: PCP Family Medicine; Visit Provider Family Medicine | DX: I10 Essential (primary) hypertension (principal) | CPT/HCPCS: 80053; 80061 ==

== ENCOUNTER 2025-04-11 10:50 | Outpatient (CLI) | payer MEDICARE, SELFPAY ==
--- NOTE | 2025-04-11 11:00 | MM_ITS ---
WS: [id number] BILATERAL 3D TOMOSYNTHESIS DIGITAL SCREENING MAMMOGRAPHY WITH CAD CLINICAL INFORMATION: breast cancer screening HISTORY: Screening mammogram. No current complaints. COMPARISON: 2023 TECHNIQUE: Bilateral CC and MLO views. FINDINGS: Scattered fibroglandular densities bilaterally. No suspicious focal mass, asymmetry, calcifications, or architectural distortion. No evidence of malignancy. Similar-appearing nodular densities RIGHT breast. MM/MM scr tomosynthesis [id number] IMPRESSION: DENSITY: There are scattered areas of fibroglandular density. BI-RADS: 2 - Benign. FOLLOW UP: 1 Year Follow-up Recommend return to annual screening mammography.
== END 2025-04-11 10:51 | disposition home or self-care (01) ==
LOC: RAD 10:52
PROVIDERS: PCP Family Medicine; Visit Provider Family Medicine
DX: Z12.31 Encounter for screening mammogram for malignant neoplasm of breast (principal); R92.323 Mammographic fibroglandular density, bilateral breasts; R92.8 Other abnormal and inconclusive findings on diagnostic imaging of breast
CPT/HCPCS: 77063; 77067